=== PATIENT | female | born 1990 | race Caucasian/White ===

== ENCOUNTER 2018-02-26 17:24 | Emergency (ER) | payer BC ==
[2018-02-26 17:38] VITALS: BP 164/86
--- NOTE | 2018-02-26 17:50 | UC ---
Cardiac HPI - HPI Summary HPI Summary: Per juvenile court liaison "LEFT-SIDED CHEST PAIN ON/OFF FOR LAST COUPLE WEEKS. STATES SHE IS UNDER STRESS AND OCCASIONALLY HAS CHEST PAIN/PRESSURE W/ STRESS. DENIES SOB. PAIN NONRADIATING. NOTHING TAKEN FOR PAIN. WORSE AT NIGHT- HX OF ANXIETY. HAS NEW PT APPT W/ PCP ON THURSDAY. " -she states that nothing has gotten worse -states that she had anxiety in past. used meds but were ineffective. -denies OTC meds - adderall, diet pills/supplements/energy drinks -not on ocp, denies chance of -CP comes and goes. lasts for 30 sec - 2 mins. associated with feeling doom and things closing in on her as well as SOB. denies palpitations. denies lightheadedness or dizziness. -denies leg swelling or redness. -no personal or Fhx DVT/PE -increased sx are associated w/ recent job promotion. 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 she spoke with her boss today who was receptive and willing to help her work load. this helps to reassure her -she came in today bc she has been waking up in the middle of the night with panic attacks and wants to reassure herself - History of Current Complaint Chief Complaint: UCChestPain Stated Complaint: CHEST PAIN/PRESSURE Time Seen by Provider: 02/26/18 17:28 Hx Last Menstrual Period: 02/22/18 Pain Intensity: 1 - Allergy/Home Medications Allergies/Adverse Reactions: Allergies Allergy/AdvReac Type Severity Reaction Status Date / Time No Known Allergies Allergy Verified 02/26/18 17:34 Home Medications: Home Medications NK [No Home Medications Reported] 02/26/18 [History Confirmed 02/26/18] PMH/Surg Hx/FS Hx/Imm Hx Previously Healthy: Yes - Surgical History Surgical History: Yes Surgery Procedure, Year, and Place: APPENDIX - Family History Known Family History: Positive: Other - no PE/DVT or premature - Social History Alcohol Use: Weekly Alcohol Amount: 1-2/week Substance Use Type: None Smoking Status (MU): Never Smoked Tobacco Review of Systems All Other Systems Reviewed And Are Negative: Yes Constitutional: Positive: Negative Skin: Positive: Negative Eyes: Positive: Negative ENT: Positive: Negative Respiratory: Positive: Shortness Of Breath Cardiovascular: Positive: Chest Pain Gastrointestinal: Positive: Negative Genitourinary: Positive: Negative Motor: Positive: Negative Neurovascular: Positive: Negative Musculoskeletal: Positive: Negative Neurological: Positive: Negative Psychological: Positive: Anxious Is Patient Immunocompromised?: No Physical Exam Triage Information Reviewed: Yes Appearance: Well-Nourished, Other: - anxious, tearful. red blotches on her chest when she is uspet. Heart rate decreases to 90 and further to 80 upon my exam. Vital Signs: Initial Vital Signs Temp 98.2 F 02/26/18 17:29 Pulse 100 02/26/18 17:29 Resp 16 02/26/18 17:29 BP 164/86 02/26/18 17:29 Pulse Ox 100 02/26/18 17:29 Vital Signs Reviewed: Yes ENT Exam: Normal ENT: Positive: Pharynx normal, TMs normal Dental Exam: Normal Neck exam: Normal Neck: Positive: Supple, Nontender, No Lymphadenopathy Respiratory Exam: Normal Respiratory: Positive: Lungs clear, Normal breath sounds, No respiratory distress, No accessory muscle use. Negative: Crackles, Rhonchi, Stridor, Wheezing Cardiovascular Exam: Normal Cardiovascular: Positive: RRR, No Murmur, Pulses Normal, Brisk Capillary Refill Abdomen Description: Positive: Nontender, Soft. Negative: Distended, Guarding Bowel Sounds: Positive: Present Musculoskeletal Exam: Normal Musculoskeletal: Positive: No Edema Neurological Exam: Normal Psychological Exam: Normal Skin Exam: Normal - Assessment/Plan Course Of Treatment: EKG: sinus tachy, o/w NAD. chest pain assoc with anxiety. low risk for PE and CAD. sx associated w/ panic attacks. -reviewed assessment with her. she is reassured and relieved. she has no further questions or concerns. she can certainly follow up here or on ER if she has further concerns over the weekend as well. she is appreciative. - Differential Diagnoses - Chest Pain Differential Diagnosis/HQI/PQRI: Chest Wall, Pulmonary Embolism - Clinical Impression Provider Diagnosis: Anxiety Discharge - Sign-Out/Discharge Documenting (check all that apply): Patient Departure All imaging exams completed and their final reports reviewed: No Studies - Discharge Plan Condition: Stable Disposition: HOME Patient Education Materials: Anxiety (ED) Additional Instructions: Make sure to keep your appt with your new PCP on Thursday to discuss the anxiety. We talked about possible benefit from medications and or/therapy as well. Decreasing caffeine can be beneficial as well. - Billing Disposition and Condition Condition: STABLE Disposition: Home
== END 2018-02-26 18:16 | disposition home or self-care (01) ==
LOC: UCCORT 17:24
DX: F41.9 Anxiety disorder, unspecified (principal)
CPT/HCPCS: 93005; 99201; G0463